=== PATIENT | male | born 1980 | race Caucasian/White ===

== ENCOUNTER 2020-05-26 06:06 | Day surgery (SDC) | payer OTHER ==
[2020-05-19 12:32] VITALS: BMI 27.8
[2020-05-26] MEDS ORDERED: LIDOCAINE HCL 2% 100 MG/5 ML DISP.SYRIN ONE (07:21)
[2020-05-26] MEDS ORDERED: DEXAMETHASONE SOD PHOSPHATE 4 MG/1 ML VIAL ONE (07:21)
[2020-05-26] MEDS ORDERED: BUPIVACAINE HCL/PF 0.25% (2.5MG/ML) 10 ML VIAL ONE (07:21)
[2020-05-26] MEDS ORDERED: ONDANSETRON 4 MG/2 ML VIAL ONE (07:21)
[2020-05-26] MEDS ORDERED: KETOROLAC TROMETHAMINE 30 MG/1 ML VIAL ONE (07:21)
[2020-05-26] MEDS ORDERED: MIDAZOLAM HCL 2 MG/2 ML SINGLE DOSE VIAL ONE (07:22)
[2020-05-26] MEDS ORDERED: SUCCINYLCHOLINE CHLORIDE 200 MG/10 ML SYRINGE ONE (07:22)
[2020-05-26] MEDS ORDERED: PROPOFOL 20 ML ONE ×3 (07:22)
[2020-05-26] MEDS ORDERED: BUPIVACAINE HCL/PF 0.25% (2.5MG/ML) 10 ML VIAL IJ ONE (08:03)
[2020-05-26] MEDS ORDERED: oxyCODONE HCL 5 MG TABLET PO PRN ×2 (08:38)
[2020-05-26] MEDS ORDERED: PROMETHAZINE HCL 25 MG/1 ML VIAL IVPUSH PRN (08:38)
[2020-05-26] MEDS ORDERED: ONDANSETRON 4 MG/2 ML VIAL IVPUSH PRN (08:38)
[2020-05-26 09:32] VITALS: TEMP 97.9
[2020-05-26 10:00] VITALS: PULSE 65
[2020-05-26 10:45] VITALS: BP 105/66
== END 2020-05-26 10:45 | disposition home or self-care (01) ==
LOC: FASU 06:06
PROVIDERS: ATTEND Orthopaedic Surgery Sports Medicine
PROC: 0SBD4ZZ Excision of Left Knee Joint, Percutaneous Endoscopic Approach (ICD-10-PCS; principal; 2020-05-26 08:03)
DX: S83.242A Other tear of medial meniscus, current injury, left knee, initial encounter (principal); X58.XXXA Exposure to other specified factors, initial encounter; Y93.9 Activity, unspecified; Y92.9 Unspecified place or not applicable
CPT/HCPCS: 94760